=== PATIENT | male | born 1995 | race Caucasian/White ===

== ENCOUNTER 2022-05-13 20:18 | Emergency (ER) | payer MEDICAID ==
[~2022-05-13] VITALS: Ht 172.7 cm; Wt 77.0 kg
[2022-05-14 08:41] VITALS: BP 125/73
== END 2022-05-14 08:46 ==
LOC: ER 20:18
DX: S09.90XA Unspecified injury of head, initial encounter (principal); W18.39XA Other fall on same level, initial encounter; Y93.89 Activity, other specified; Y92.89 Other specified places as the place of occurrence of the external cause; Y99.8 Other external cause status; F20.9 Schizophrenia, unspecified
CPT/HCPCS: 99285